=== PATIENT | female | born 1960 | race Caucasian/White ===

== ENCOUNTER 2024-11-16 06:46 | Day surgery (SDC) | payer MEDICARE, BC ==
[2024-11-16] MEDS ORDERED: Propofol 200 MG/20 ML SDV ONE (07:09)
[2024-11-16] MEDS ORDERED: fentaNYL 50 MCG/ML SDV ONE (07:10)
[2024-11-16] MEDS ORDERED: Midazolam 1 MG/ML 2 ML SDV ONE (07:10)
[2024-11-16] MEDS: Lactated Ringers 1,000 ML IV SCH (07:57)
== END 2024-11-16 09:32 | disposition home or self-care (01) ==
LOC: JP.SDS 06:46
PROVIDERS: ATTEND Surgery
DX: Z12.11 Encounter for screening for malignant neoplasm of colon (principal); K57.30 Diverticulosis of large intestine without perforation or abscess without bleeding; K21.9 Gastro-esophageal reflux disease without esophagitis
CPT/HCPCS: 00812; G0121; J2250; J2704; J3010; J7120